=== PATIENT | male | born 1975 | race Caucasian/White ===

== ENCOUNTER 2023-11-06 22:54 | Emergency (ER) | payer OTHER ==
[~2023-11-06] VITALS: Ht 180.3 cm; Wt 85.0 kg
[2023-11-06 23:01] VITALS: O2SAT 97
[2023-11-07] MEDS: TRANEXAMIC ACID 1,000MG/10ML IV ONE (00:31)
[2023-11-07 01:53] LABS: HEMATOCRIT. 26.5 % (42.0-52.0); HEMOGLOBIN. 8.9 g/dL (14.0-18.0); MEAN CORPUSCULAR HEMOGLOBIN 28.6 pg (28.0-32.0); MEAN CORPUSCULAR HGB CONC 33.7 g/dL (31.0-37.0); MEAN PLATELET VOLUME 6.9 fl (7.4-10.4); PLATELET 382 x1000/uL (130-400); RED BLOOD CELL COUNT 3.12 mill/uL (4.7-6.1); WHITE BLOOD COUNT 11.8 x1000/uL (4.5-11.0)
[2023-11-07 01:56] LABS: DIFFERENTIAL COMMENT 1
[2023-11-07 01:58] LABS: CHLORIDE 100 mEq/L (98-107); POTASSIUM 3.5 mEq/L (3.5-5.1); SODIUM 136 mEq/L (136-145)
[2023-11-07 01:59] LABS: CALCIUM 7.8 mg/dL (8.7-10.4); CARBON DIOXIDE 28 mEq/L (21-32)
[2023-11-07 02:04] LABS: CREATININE 2.8 mg/dL (0.6-1.3); GLUCOSE 98 mg/dL (70-105); UREA NITROGEN BLOOD 43 mg/dL (9-23)
[2023-11-07 02:06] LABS: ALANINE AMINOTRANSFERASE 177 IU/L (10-49); ALBUMIN 2.8 g/dL (3.2-4.8); ASPARTATE AMINOTRANSFERASE 83 IU/L (<34); BILIRUBIN TOTAL 0.4 mg/dL (0.1-1.0); PROTEIN TOTAL 5.4 g/dL (6.0-8.3)
[2023-11-07] MEDS: HYDROCODONE/ACETAMINOPHEN 5/325MG TABLET PO ONE (03:48)
[2023-11-07 08:18] LABS: PLATELET ESTIMATE NORMAL
[2023-11-07 13:51] VITALS: BP 132/78; PULSE 94; RESP 18; TEMP 98.3
== END 2023-11-07 15:39 | disposition home or self-care (01) ==
LOC: ER 22:54
DX: T82.838A Hemorrhage due to vascular prosthetic devices, implants and grafts, initial encounter (principal); X58.XXXA Exposure to other specified factors, initial encounter; Z85.9 Personal history of malignant neoplasm, unspecified
CPT/HCPCS: 36415; 71045; 80053; 85025; 86850; 86900; 93005; 96374; 99291

== ENCOUNTER 2023-12-20 14:05 | Emergency (ER) | payer MEDICAID, OTHER ==
[~2023-12-20] VITALS: Ht 165.1 cm; Wt 57.0 kg
[2023-12-20 14:13] VITALS: O2SAT 100
[2023-12-20 15:59] LABS: CHLORIDE 102 mEq/L (98-107); POTASSIUM 3.9 mEq/L (3.5-5.1); SODIUM 139 mEq/L (136-145)
[2023-12-20 16:00] LABS: CARBON DIOXIDE 29 mEq/L (21-32)
[2023-12-20 16:03] LABS: PROTHROMBIN TIME 11.4 sec (9.6-11.0)
[2023-12-20 16:04] LABS: BASOPHILS % 1.3 % (0.0-2.0); HEMATOCRIT. 22.4 % (42.0-52.0); HEMOGLOBIN. 7.3 g/dL (14.0-18.0); LYMPHOCYTES % 34.2 % (20.0-50.0); MEAN CORPUSCULAR HEMOGLOBIN 28.6 pg (28.0-32.0); MEAN CORPUSCULAR HGB CONC 32.8 g/dL (31.0-37.0); MEAN CORPUSCULAR VOLUME 87.2 fL (80.0-94.0); MEAN PLATELET VOLUME 6.4 fl (7.4-10.4); MONOCYTES % 11.9 % (2.0-8.0); NEUTROPHILS % 51.6 % (40.0-76.0); PLATELET 597 x1000/uL (130-400); RED BLOOD CELL COUNT 2.57 mill/uL (4.7-6.1); WHITE BLOOD COUNT 5.3 x1000/uL (4.5-11.0)
[2023-12-20 16:05] LABS: GLUCOSE 101 mg/dL (70-105); UREA NITROGEN BLOOD 28 mg/dL (9-23)
[2023-12-20 16:07] LABS: ALANINE AMINOTRANSFERASE 53 IU/L (10-49); ALBUMIN 3.6 g/dL (3.2-4.8); ASPARTATE AMINOTRANSFERASE 50 IU/L (<34); BILIRUBIN TOTAL 0.3 mg/dL (0.1-1.0); PROTEIN TOTAL 7.5 g/dL (6.0-8.3)
[2023-12-20 16:16] LABS: CREATININE 1.5 mg/dL (0.6-1.3)
[2023-12-20 22:00] VITALS: BP 129/79; PULSE 100; RESP 26; TEMP 98.8
== END 2023-12-20 22:00 | disposition home or self-care (01) ==
LOC: ER 14:05
DX: N18.6 End stage renal disease (principal); D64.9 Anemia, unspecified; E11.9 Type 2 diabetes mellitus without complications; Z85.828 Personal history of other malignant neoplasm of skin; Z99.2 Dependence on renal dialysis
CPT/HCPCS: 80053; 85025; 85610; 86850; 86900; 86901; 86920; 36415; 71045; 93005; 99285; Z7610; P9016